=== PATIENT | female | born 1995 | race Caucasian/White ===

== ENCOUNTER 2021-10-04 14:51 | Emergency (ER) | payer OTHER, SELFPAY ==
[2021-10-04 15:05] VITALS: BP 116/74; PULSE 86; RESP 16; TEMP 37; O2SAT 100
--- NOTE | 2021-10-04 15:23 | ED.URI ---
HPI - URI/Sore Throat General Chief Complaint: Upper Respiratory Infection Stated Complaint: Sore Throat Time Seen by Provider: 10/04/21 15:24 Source: patient and RN notes reviewed Mode of arrival: ambulatory Limitations: no limitations History of Present Illness HPI Narrative: 26-year-old female presents to the [facility] with 2 days of upper respiratory concerns. Recently just got over strep. States she has had a cough that started on 02 October. Body aches that started today. Patient has a concern for bronchitis. Concerned she might need another antibiotic even though she just finished 1 for strep throat. Patient reports that she was positive COVID on day of delivery, 5 weeks ago. Currently breast-feeding. Related Data Allergies Allergy/AdvReac Type Severity Reaction Status Date / Time Penicillins Allergy Severe Swelling Verified 10/04/21 15:15 Review of Systems Review of Systems: All systems reviewed & are unremarkable except as noted in HPI and below Constitutional: Constitutional: Reports no additional constitutional complaints, Denies chills and Denies fever(s) Eyes: Eyes: Reports no additional eye complaints ENT: Reports system reviewed and no additional complaints, except as documented Cardiovascular: Cardiovascular: Reports no additional cardiovascular complaints Respiratory: Respiratory: Reports as per HPI, Denies chest congestion, Reports cough and Denies dyspnea Gastrointestinal: Gastrointestinal: Reports no additional gastrointestinal complaints Musculoskeletal: Musculoskeletal: Reports no additional musculoskeletal complaints Integumentary/Breasts: Skin/Breast: Reports system reviewed and no additional complaints, except as docu Neurologic: Reports system reviewed and no additional complaints, except as documented Psychiatric: Psychiatric: Reports no additional psychiatric complaints Allergic/Immunologic: Allergic/Immunologic: Reports no additional allergic/immunologic complaints [facility] Past Medical History Medical History (Updated 10/04/21 @ 18:39 by Trena Gan APRN) Patient denies medical problems Surgical History Surgical History (Updated 10/04/21 @ 18:39 by Trena Gan APRN) No pertinent past surgical history Social History Social History (Updated 10/04/21 @ 18:39 by Trena Gan APRN) Living arrangements: with family Gender identity (if verbalized by the patient): Female Comments At the time of my signature, I reviewed and agree with the nursing past medical, surgical, social, and family history. There is no relevant family history pertinent to the patient complaint. Exam Const: General: healthy appearing, no acute distress and alert Nutritional Appearance: well nourished and obese Orientation/consciousness: patient oriented x3 Limitations: no limitations HENMT: Head: normal to inspection Ears: external ears normal, TM's normal bilaterally and EAC's normal General nose exam: Normal external nose present and Normal nares present Mouth: Yes lip normal Throat: uvula midline, posterior oropharynx abnormal cobblestoning and postnasal drainage Eyes: General: appearance normal, both eyes and all related structures Pupils: Equal, round and reactive pupils present Neck: Neck: normal visual inspection, no lymphadenopathy and no meningeal signs Chest: Chest palpation & inspection: normal inspection of the chest Resp: Effort & Inspection: normal respiratory effort and no use of accessory muscles Auscultation: clear to auscultation bilaterally, no crackles, no rales, no rhonchi and no wheezes Cardio: Rate: regular rate Rhythm: regular rhythm Back/Spine/Pelvis: Cervical Spine: normal cervical lordosis Thoracic/Lumbar Spine: thoracic and lumbar spine normal to inspection Skin: General skin exam: normal color Rashes: no rashes Wounds: no wounds Neuro: General: patient oriented x3, moves all extremities, no meningeal signs and no focal motor deficits Cranial nerv
== END 2021-10-04 15:45 | disposition home or self-care (01) ==
PROVIDERS: Emergency Provider Nurse Practitioner; PCP Family Medicine
DX: R09.82 Postnasal drip (principal); J06.9 Acute upper respiratory infection, unspecified; Z86.16 Personal history of COVID-19
CPT/HCPCS: 99212; G0463

== ENCOUNTER 2022-12-11 15:17 | Emergency (ER) | payer OTHER, SELFPAY ==
--- NOTE | 2022-12-11 15:28 | ED.URI ---
HPI - URI/Sore Throat General Chief Complaint: Upper Respiratory Infection Stated Complaint: Sore Throat, Congestion, Shortness of Breath Time Seen by Provider: 12/11/22 15:29 Source: patient, family, RN notes reviewed and old records reviewed Mode of arrival: ambulatory Limitations: no limitations History of Present Illness HPI Narrative: 27 year female presents to [facility] accompanied by 2 children with 1 child to be seen for illness also. Mother states Monday she started having a sore throat, Monday it kind of went into to her chest, and today she feels a little light headed and warm. Patient is 16 weeks . Patient reports that she hasn't had a fever, chills or acute congestion. Patient reports that she has taken some Tylenol for her symptoms. MD elicited complaint: cough and sore throat Onset (ago): day(s) (3 days) Pain scale (0-10): 2 Able to tolerate fluids by mouth: Yes Treatments prior to arrival: acetaminophen Related Data Home Medications Medication Instructions Recorded Confirmed vit no.95-ferrous tablet PO 12/11/22 fumarate 28 mg-folic acid 800 mcg tablet () progesterone micronized 200 mg mg 12/11/22 capsule Allergies Allergy/AdvReac Type Severity Reaction Status Date / Time Penicillins Allergy Severe Swelling Verified 12/11/22 15:41 Review of Systems Review of Systems: CONSTITUTIONAL: Reports malaise,no chills, sweats, or fever. states has felt warm and kind of lightheaded is 16 weeks . EYES: Denies visual changes, redness, or discharge. ENT: Reports rhinorrhea, congestion,no sinus pain, otalgia and positive for sore throat. CARDIOVASCULAR: Denies chest pain, palpitations, or edema. RESPIRATORY: Reports cough.? Denies dyspnea. GASTROINTESTINAL: Denies abdominal pain, nausea, vomiting, diarrhea SKIN: Denies rash or itching. MUSCULOSKELETAL: Denies myalgia. NEUROLOGIC: Denies headache. All systems reviewed & are unremarkable except as noted in HPI and below PMFSH Past Medical History Medical History (Updated 12/11/22 @ 16:58 by Bernadette Gallegos NP) Anxiety Bronchitis Patient denies medical problems Surgical History Surgical History (Updated 12/11/22 @ 16:30 by Bernadette Gallegos NP) Hx of cholecystectomy Hx of dilation and curettage Social History Social History (Updated 10/04/21 @ 18:39 by Trena Gan APRN) Living arrangements: with family Gender identity (if verbalized by the patient): Female Comments At time of signature, agree with nursing past medical, surgical, social and family history. There is no relevant family history pertinent to the presenting complaint Exam Narrative: GENERAL: Well-appearing, well-nourished, and in no acute distress. HEAD: Normocephalic EYES: PERRLA, conjunctivae clear ENT: Nares clear, turbinates edematous and erythematous, clear discharge. Mucous membranes moist. TM pearly coronado with dull light reflex bilaterally; no tragal tenderness. Oropharynx erythematous without lesions. Tonsils not enlarged and without exudate, no drooling, no hoarseness, no trismus, uvula midline. NECK: Supple. No lymphadenopathy CHEST: Clear to auscultation, breath sounds equal. No wheezing, rhonchi, rales, or stridor. No respiratory distress, speaks in full sentences.SAO2 98% on room air. HEART: Regular rate and rhythm. No murmur heard. SKIN: Warm, dry, no rash. NEURO: Alert and oriented x3. PSYCH: Normal mood and affect Course Course Emergency Course: Patient is aware of diagnosis, understands and agrees to treatment plan.? Anticipatory guidance given.? Patient agrees to follow-up as directed and is aware of reasons to seek care at the emergency department. Portions of this record may have been created with voice recognition software Level of Care: Express Care Visit Vital Signs Vital signs: Vital Signs Temperature 36.9 C 12/11/22 15:42 Pulse Rate 70 12/11/22 1
[2022-12-11 15:42] VITALS: BP 118/74; PULSE 70; RESP 18; TEMP 36.9; O2SAT 98
== END 2022-12-11 17:02 | disposition home or self-care (01) ==
PROVIDERS: Emergency Provider Registered Nurse; PCP Family Medicine
DX: O99.512 Diseases of the respiratory system complicating pregnancy, second trimester (principal); Z3A.16 16 weeks gestation of pregnancy
CPT/HCPCS: 87081; 87426; 87804; 87880; 99213; C9803; G0463

== ENCOUNTER 2024-04-16 09:24 | Emergency (ER) | payer OTHER, SELFPAY ==
[2024-04-16 09:37] VITALS: BP 113/74; PULSE 68; RESP 16; TEMP 36.9; O2SAT 100
--- NOTE | 2024-04-16 09:53 | ED.URI ---
HPI - URI/Sore Throat General Chief Complaint: Upper Respiratory Infection Stated Complaint: sore throat,CA,bodyaches flu A exp Time Seen by Provider: 04/16/24 10:21 Source: patient and RN notes reviewed Mode of arrival: ambulatory Limitations: no limitations History of Present Illness HPI Narrative: 28-year-old female presents with concern for 2 day history of sore throat, right ear pain, nasal congestion postnasal drip, cough. She reports chest tightness when she coughs. Reports body aches and headaches. Reports exposure to flu. Reports she has taken no [id number] medications MD elicited complaint: cough and sore throat Related Data Home Medications ?Medication ?Instructions ?Recorded ?Confirmed ?Last Taken ?Type vit no.95-ferrous tablet PO 12/11/22 Unknown History fumarate 28 mg-folic acid 800 mcg tablet () progesterone micronized 200 mg mg 12/11/22 Unknown History capsule Allergies Allergy/AdvReac Type Severity Reaction Status Date / Time Penicillins Allergy Severe Swelling Verified 04/16/24 09:56 Review of Systems Review of Systems: CONSTITUTIONAL: Reports malaise EYES: Denies visual changes, redness, or discharge. ENT: Reports rhinorrhea, congestion, otalgia and sore throat. CARDIOVASCULAR: Denies chest pain, palpitations, or edema. RESPIRATORY: Reports cough. Denies dyspnea. GASTROINTESTINAL: Denies abdominal pain, nausea, vomiting, diarrhea SKIN: Denies rash or itching. MUSCULOSKELETAL: Reports myalgia. NEUROLOGIC: Reports headache. All systems reviewed & are unremarkable except as noted in HPI and below PMFSH Past Medical History Medical History (Updated 04/16/24 @ 10:28 by Trena Orozco NP) Bronchitis Anxiety Patient denies medical problems Surgical History Surgical History (Updated 12/11/22 @ 16:30 by Bernadette Gallegos NP) Hx of dilation and curettage Hx of cholecystectomy Social History Social History (Updated 10/04/21 @ 18:39 by Trena Gan APRN) Living arrangements: with family Gender identity (if verbalized by the patient): Female Comments At time of signature, agree with nursing past medical, surgical, social and family history. There is no relevant family history pertinent to the presenting complaint Exam Narrative: GENERAL: Nontoxic-appearing, well-nourished, and in no acute distress. HEAD: Normocephalic EYES: PERRLA, conjunctivae clear ENT: Nares clear. Mucous membranes moist. TM pearly coronado with dull light reflex bilaterally; no tragal tenderness. Oropharynx not erythematous without lesions. Tonsils not enlarged and without exudate, no drooling, no hoarseness, no trismus, uvula midline. NECK: Supple. No lymphadenopathy CHEST: Clear to auscultation, breath sounds equal. No wheezing, rhonchi, rales, or stridor. No respiratory distress, speaks in full sentences. HEART: Regular rate and rhythm. No murmur heard. SKIN: Warm, dry, no rash. NEURO: Alert and oriented x3. PSYCH: Normal mood and affect Course Course Emergency Course: Patient is aware of diagnosis, understands and agrees to treatment plan. Anticipatory guidance given. Patient agrees to follow-up as directed and is aware of reasons to seek care at the emergency department. Portions of this record may have been created with voice recognition software Level of Care: Express Care Visit Vital Signs Vital signs: Vital Signs Temperature 98.5 F 04/16/24 09:37 Pulse Rate 68 04/16/24 09:37 Respiratory Rate 16 04/16/24 09:37 Blood Pressure 113/74 04/16/24 09:37 Pulse Oximetry 100 04/16/24 09:37 Oxygen Delivery Room Air 04/16/24 09:37 Temperature 98.5 F 04/16/24 09:37 Pulse Rate 68 04/16/24 09:37 Respiratory Rate 16 04/16/24 09:37 Blood Pressure 113/74 04/16/24 09:37 Pulse Oximetry 100 04/16/24 09:37 Oxygen Delivery Room Air 04/16/24 09:37 Reviewed. MDM - URI/Sore Throat MDM Narrative Medical decision making narrative: Differential diagnosis considered: Pandya virus, strep pharyngitis, allergic rhinitis, upper respiratory tract infection, sinusitis, rhinosinusitis, nasopharyngitis. viral pharyngitis, otitis media, otitis externa, pneumonia, bronchitis, viral cough syndrome, viral syndrome, and influenza. Exam findings show no acute concerns or changes; patient is non-toxic appearing and is in no distress. Patient is appropriate for outpatient treatment and follow-up. Lab Data Attestation: I reviewed the patient's lab results. Critical Care Time Critical Care Time Critical Care Time: No Discharge Plan Discharge Clinical Impression: Influenza-like illness Patient Disposition: Home, Self-Care Condition: Stable Instructions: Viral Syndrome (ED) Additional Instructions: -Take strict precautions to prevent the spread of your virus. Be diligent about covering your cough (even when you are alone) and washing your hands frequently. -You may contagious until you have been symptom and/or fever free for 24 hours without fever reducing medicine -Alternate Ibuprofen and Tylenol for pain and fever relief (per package directions) -Some Cough medicines may make you drowsy, do not take it if you have to make important decisions, drive, or work. -Drink plenty of fluid - drink fluid with electrolytes such as Gatorade or other oral re-hydration solution. Avoid caffeine, which can make dehydration worse. -Get plenty of rest to help your body heal. -Use a cool mist humidifier for chest and nasal congestion. -Eat RAW honey or use cough drops to ease throat discomfort -Do not smoke or expose children to secondhand smoke -Wash your hands frequently. -Please follow-up with your primary care doctor in the next 1-2 days if your symptoms do not improve. -If you have any worsening of symptoms or any other concerns please go to the ED immediately. -Please take medications as prescribed and continue taking your home medications as usual. Patient Language: Belarusian Prescriptions: New promethazine-DM 6.25-15 mg/5 mL syrup 5 ml PO Q4-6H PRN (Reason: cough) Qty: 120 0RF methylprednisolone [Medrol (Michael)] 4 mg tablets,dose pack See Rx Instructions .ROUTE .COMPLEX Qty: 21 0RF Rx Instructions: orally per package directions No Action progesterone micronized 200 mg capsule PNV b#95-ferrous fumarate-FA [] 28 mg iron- 800 mcg tablet PO Follow-up/Referrals: Joel,Dominick Montano MD [Primary Care Provider] - Stand Alone Forms: Work/School Release IP Time of Disposition: 10:29
[2024-04-16 10:24] LABS: EDSTREPNEGPOS1 Negative (Negative)
[2024-04-16 10:30] LABS: EDCOVIDSCREEN Negative (Negative); EDINFLUASCREEN Negative (Negative); EDINFLUBSCREEN Negative (Negative)
== END 2024-04-16 10:35 | disposition home or self-care (01) ==
PROVIDERS: Emergency Provider Nurse Practitioner; PCP Family Medicine
DX: J02.9 Acute pharyngitis, unspecified (principal); R51.9 Headache, unspecified; H92.01 Otalgia, right ear; R05.9 Cough, unspecified; R09.81 Nasal congestion; Z20.822 Contact with and (suspected) exposure to COVID-19
CPT/HCPCS: 87081; 87426; 87804; 87880; 99213; G0463

== ENCOUNTER 2024-07-21 12:58 | Emergency (ER) | payer OTHER, SELFPAY ==
--- NOTE | ~2024-07-21 | US_ITS ---
US pelvic complete w TV Ordering provider: Steven Robert MD History: . Lower abdominal pain, concern for ovarian torsion . Comparison: None. Technique: Transabdominal and endovaginal ultrasound of the pelvis (Doppler ultrasound interrogation techniques used as needed for this exam.) FINDINGS: CERVIX: Normal. Calcifications are noted. UTERUS: Measures 9.2x 4.2x 6.2 cm in length which is within normal limits and is anteverted. No myom etrial masses. Peripheral veins are slightly prominent. ENDOMETRIUM: Normal in thickness measuring 3.3 mm. No endometrial masses, cysts or fluid. CUL DE SAC: Minimal free fluid seen adjacent to the right ovary. RIGHT OVARY: Normal in size measuring 4x 5x 5.6 centimeters. Normal echotexture. Doppler vascular josr w present. Multiple cystic structures with the largest measures 4.7 x 3.4 x 2.8 cm. LEFT OVARY: Normal in size measuring 2.8x 2.5x 3.2 cm. Normal echotexture. Doppler vascular flow pres ent. ADNEXA: Normal. No mass. IMPRESSION: Slightly enlarged right ovary with ovarian cysts. No definite torsion seen. Clinical correlation and follow-up advised. Possibility of pelvic congestion syndrome cannot be excluded. Otherwise, normal pe lvic ultrasound. Reviewed, dictated and finalized at location A. IMPRESSION: Slightly enlarged right ovary with ovarian cysts. No definite torsion seen. Cli nical correlation and follow-up advised. Possibility of pelvic congestion syndr ome cannot be excluded. Otherwise, normal pelvic ultrasound.
[2024-07-21 12:59] VITALS: BP 117/80; PULSE 75; RESP 16; TEMP 36.8; O2SAT 96
[2024-07-21 13:14] LABS: Basophils Absolute Auto 0.1 K/mm3 (0.0-0.1); Basophils Percent Auto 0.4 % (0.2-1.2); Eosinophils Absolute Auto 0.1 K/mm3 (0-0.3); Eosinophils Percent Auto 0.5 % (0-4.4); Hematocrit 38.9 % (37.0-47.0); Hemoglobin 13.1 g/dL (12.0-15.0); Immature Granulocyte Absolute 0.03 K/mm3 (0.00-0.031); Immature Granulocyte Percent A 0.3 % (0-0.5); Lymphocytes Absolute Auto 1.95 K/mm3 (0.9-3.2); Lymphocytes Percent Auto 16.3 % (18.3-44.2); Mean Corpuscular HGB Conc 33.7 g/dl (32-36); Mean Corpuscular Hemoglobin 27.2 pg (26-34); Mean Corpuscular Volume 80.9 fl (80-100); Mean Platelet Volume 10.3 fl (7.4-10.4); Monocytes Absolute Auto 0.7 K/mm3 (0.1-0.6); Neutrophils Absolute Auto 9.2 K/mm3 (1.3-6.7); Neutrophils Percent Auto 76.5 % (45.5-73.1); Platelet Count Result 262 k/mm3 (150-375); Red Blood Count 4.81 M/mm3 (4.2-5.4); Red Cell Distribution Width 12.6 % (11.5-14.5)
[2024-07-21 13:17] LABS: BEDSIDEPREGUCG Negative (Negative)
--- NOTE | 2024-07-21 13:18 | ED_ITS ---
HPI - General Adult General Chief complaint: Abdominal Pain Stated complaint: Abd Pain Time Seen by Provider: 07/21/24 13:07 History of Present Illness HPI narrative: 29-year-old female presenting to the emergency department for evaluation for left lower abdominal pain. Patient reports that her symptoms are probably while she sat time for her. Patient states she did have some pain with urination this morning and was having some vaginal spotting. Patient is on control but does not suspect that she is . Patient does have a prior history of ovarian cysts. When the pain started she did present to Urgent Care and due to the severity of her pain EMS was called and patient was transported to the emergency department by EMS. Patient was treated with IV fentanyl in route. At time initial evaluation patient states this pain medication is wearing off and does appear uncomfortable. Related Data Home Medications ?Medication ?Instructions ?Recorded ?Confirmed ?Last Taken ?Type vit no.95-ferrous tablet PO 12/11/22 Unknown History fumarate 28 mg-folic acid 800 mcg tablet () progesterone micronized 200 mg mg 12/11/22 Unknown History capsule Allergies Allergy/AdvReac Type Severity Reaction Status Date / Time Penicillins Allergy Severe Swelling Verified 07/21/24 13:03 Review of Systems 2 Review of Systems: All systems reviewed & are unremarkable except as noted in HPI and below PMFSH Past Medical History Medical History (Updated 07/21/24 @ 15:39 by Steven Robert MD) Bronchitis Anxiety Patient denies medical problems Surgical History Surgical History (Updated 12/11/22 @ 16:30 by Bernadette Gallegos NP) Hx of dilation and curettage Hx of cholecystectomy Social History Social History (Updated 10/04/21 @ 18:39 by Trena Gan APRN) Living arrangements: with family Gender identity (if verbalized by the patient): Female Exam 2 Narrative: APPEARANCE: Uncomfortable appearing HEAD: normocephalic, atraumatic. EYES: PERRLA/EOMI, conjunctivae clear. NOSE: Normal no drainage EARS:TMS clear with good light reflex. THROAT: Pharynx clear, no exudate. NECK: Supple. No adenopathy, no masses. RESPIRATORY: Airway patent, respirations nonlabored. Clear to auscultation bilaterally, no rales, rhonchi, wheezing. CARDIOVASCULAR: Regular rate and rhythm without murmurs rubs or gallops. ABDOMINAL: Left lower quadrant tenderness to palpation, suprapubic tenderness to palpation MUSCULOSKELETAL: Moves all extremities. Strength/ROM intact, No edema, No calf tenderness. NEURO: Alert. Cranial nerves II through XII intact. Grossly intact SKIN: Warm, dry. Normal Color Course Vital Signs Vital signs: Vital Signs Temperature 98.2 F 07/21/24 12:59 Pulse Rate 75 07/21/24 12:59 Respiratory Rate 16 07/21/24 12:59 Blood Pressure 117/80 07/21/24 12:59 Pulse Oximetry 96 07/21/24 12:59 Temperature 98.2 F 07/21/24 12:59 Pulse Rate 75 07/21/24 12:59 Respiratory Rate 16 07/21/24 12:59 Blood Pressure 117/80 07/21/24 12:59 Pulse Oximetry 96 07/21/24 12:59 Medical Decision Making MDM Narrative Medical decision making narrative: 29-year-old female presents emergency department for evaluation for urinary symptoms including dysuria and suprapubic abdominal pain. Patient is currently afebrile but does have a leukocytosis of 12.0 and hemoglobin of 13.1. No significant abnormalities on the patient's CMP. UA was significant for urinary tract infection was leukocyte esterase positive did have high red blood cells high white blood cells. Patient's urine was negative. Ultrasound did show evidence of a right-sided ovarian cyst. Patient's pain is suprapubic and to the left. Patient will be treated with Levaquin due to her underlying medication allergies. Patient will be provided Pyridium for additional symptom control. Patient was comfortable with plan for discharge and close follow-up. Differential Diagnosis Differential Diagnosis: Torsion, ovarian cyst, appendicitis, urinary tract infection, kidney stone Vital Signs Vital Signs: Vital Signs Temperature 98.2 F 07/21/24 12:59 Pulse Rate 75 07/21/24 12:59 Respiratory Rate 16 07/21/24 12:59 Blood Pressure 117/80 07/21/24 12:59 Pulse Oximetry 96 07/21/24 12:59 Temperature 98.2 F 07/21/24 12:59 Pulse Rate 75 07/21/24 12:59 Respiratory Rate 16 07/21/24 12:59 Blood Pressure 117/80 07/21/24 12:59 Pulse Oximetry 96 07/21/24 12:59 Lab Data Lab results reviewed: Yes I reviewed the patient's lab results. 07/21/24 13:07 07/21/24 13:07 Labs: Lab Results 07/21/24 07/21/24 07/21/24 Range/Units 13:07 13:13 13:14 WBC 12.0 H (4.5-10.0) K/mm3 RBC 4.81 (4.2-5.4) M/mm3 Hgb 13.1 (12.0-15.0) g/dL Hct 38.9 (37.0-47.0) % MCV 80.9 (80-100) fl MCH 27.2 (26-34) pg MCHC 33.7 (32-36) g/dl RDW 12.6 (11.5-14.5) % Plt Count 262 (150-375) k/mm3 MPV 10.3 (7.4-10.4) fl Immature Gran % (Auto) 0.3 (0-0.5) % Neut % (Auto) 76.5 H (45.5-73.1) % Lymph % (Auto) 16.3 L (18.3-44.2) % [place] % (Auto) 6.0 (2.6-8.5) % Eos % (Auto) 0.5 (0-4.4) % Baso % (Auto) 0.4 (0.2-1.2) % Lymph # (Auto) 1.95 (0.9-3.2) K/mm3 Newton # (Auto) 0.7 H (0.1-0.6) K/mm3 Eos # (Auto) 0.1 (0-0.3) K/mm3 Baso # (Auto) 0.1 (0.0-0.1) K/mm3 Abs Immat Gran (auto) 0.03 (0.00-0.031) K/mm3 Absolute Neuts (auto) 9.2 H (1.3-6.7) K/mm3 Absolute Nucleated RBC 0.000 (0.0-0.012) K/mm3 Nucleated RBC % 0.0 (0.0-0.2) % Sodium 140 (137-145) mmol/L Potassium 3.8 (3.4-5.0) mmol/L Chloride 108 H (98-107) mmol/L Carbon Dioxide 23 (22-30) mmol/L Anion Gap 9 (4-12) mmol/L BUN 10 (7-17) mg/dL Creatinine 0.57 L (0.7-1.0) mg/dL Estim Creat Clear Calc 139 ml/min Estimated GFR > 60 (59 - ) Glucose 99 (65-110) mg/dL Calcium 9.2 (8.4-10.2) mg/dL Total Bilirubin 0.4 (0.2-1.3) mg/dL AST 53 H (14-36) U/L ALT 86 H (6-35) U/L Alkaline Phosphatase 49 (38-126) U/L Total Protein 7.0 (6.3-8.2) g/dL Albumin 4.0 (3.5-5.1) g/dL Lipase 58 (23-300) U/L Urine Color Dark yellow (Yellow) Urine Appearance Cloudy H (Clear) Urine pH 6.0 (5.0-9.0) Ur Specific [place] 1.026 (1.001-1.035) Urine Protein 2+ H (Negative) mg/dL Urine Glucose (UA) Negative (Negative) mg/dL Urine Ketones Trace H (Negative) mg/dL Ur Blood (Man) 3+ H (Negative) Urine Nitrate Negative (Negative) Urine Bilirubin Negative (Negative) Urine Urobilinogen 1.0 (<2.0) mg/dL Add Ur Microanalysis Reviewed Leukocyte Esterase Rfl 2+ H (Negative) HODA/UL Urine RBC >100 H (0-2) /hpf Urine WBC >100 H (0-3) /hpf Ur Squamous Epith Cells None seen (Few) /hpf Urine Bacteria None seen /hpf Urine Casts 0-2 POC Urine HCG, Qual Negative (Negative) Imaging Data Radiologist's impression: Impressions Pelvic/Transvag US 07/21/24 14:10 IMPRESSION: Slightly enlarged right ovary with ovarian cysts. No definite torsion seen. Clinical correlation and follow-up advised. Possibility of pelvic congestion syndrome cannot be excluded. Otherwise, normal pelvic ultrasound. Discharge Plan Discharge Clinical Impression: Urinary tract infection Patient Disposition: Home Condition: Stable Instructions: Antibiotic Form, Urinary Tract Infection in Women (DC) Additional Instructions: Ibuprofen for pain control. Pyridium as needed for urinary symptoms. Antibiotic as directed until completed. [place] as needed for additional pain control. Have close follow-up with your primary care physician. Patient Language: Mohawk Prescriptions: New levofloxacin 750 mg tablet 750 mg PO DAILY 7 Days Qty: 7 0RF phenazopyridine [Pyridium] 200 mg tablet 200 mg PO TID Qty: 6 0RF hydrocodone-acetaminophen 5-325 mg tablet 1 tablet PO Q12H PRN (Reason: pain) Qty: 14 0RF No Action progesterone micronized 200 mg capsule PNV cmb#95-ferrous fumarate-FA [] 28 mg iron- 800 mcg tablet PO promethazine-DM 6.25-15 mg/5 mL syrup 5 ml PO Q4-6H PRN (Reason: cough) Qty: 120 0RF methylprednisolone [Medrol (Michael)] 4 mg tablets,dose pack See Rx Instructions .ROUTE .COMPLEX Qty: 21 0RF Rx Instructions: orally per package directions Follow-up/Referrals: Joel,Dominick Montano MD [Primary Care Provider] -
[2024-07-21] MEDS: HYDROmorphone HCL INJ (*CRX) 2 MG/ML VIAL 1 MG IV PUSH (13:21)
[2024-07-21] MEDS: ONDANSETRON INJ 4 MG/2 ML VIAL IV PUSH (13:21)
--- OUTSIDE RECORDS SUMMARY | 2024-07-21 13:22 | XMS_ITS | Clinical Summary ---
Author Organization [facility] Address [address] [place] [address] Care Team Providers Care Roping Tender Name Role Phone Dominick Maldonado MD Primary Care Provider Allergies Active Allergy Reactions Criticality Noted Date Comments Penicillins Swelling,Blisters High 04/12/2019 Medications sertraline (ZOLOFT) 50 mg tablet Take 1 tablet (50 mg total) by mouth daily 30 tablet 5 4 Active hydrOXYzine (ATARAX) 25 mg tablet Take 1 tablet (25 mg total) by mouth every 6 (six) hours as needed for anxiety 30 tablet 1 4 Active Additional Information Patient not taking.Reported on 07/21/2024 Hospital, Clinic, or Other Facility Administered Medication Ordered Dose Route Frequency Start Date End Date Status etonogestreL (NEXPLANON) implant 68 mgIndications:Pregna ncy Contraception 68 mg subderm Continuous (implanted device) 07/04/2023 07/03/2026 Active Active Problems Problem Noted Date Diagnosed Date Annual physical exam 07/04/2023 Sterilization 05/15/2023 care following vaginal delivery Overview (05/12/2023): 05/11/2023 PPD #1 (CZ) 27 yo s/p of viable female . VSS, afebrile B+, Rubella Immune Hgb 11.5 QBL 200 Mom and baby doing well Normal exam Ambulating, voiding and tolerating PO, lochia WNL MOF: Formula MOC: Tubal - will need at 6 weeks will have scheduled VTE: Frequent ambualtion Dispo: Continue routine care 05/12/23, PPD2 (JF) S/p uncomplicated EBL 200 cc, Hgb 11.9 > 11.5 B+, Rubella immune Vital signs reviewed and notable for MR BP but does not meet criteria for hypertensive disorder Ambulating, tolerating PO, voiding spontaneously, lochia moderate, pain controlled MOF: Formula feeding MOC: desire tubal ligation - will have scheduled in 4-6 wks VTE ppx: The patient has the following MAJOR risk factors none and the following MINOR risk factors BMI 30-39. SCDs ordered for VTE prophylaxis. Mood: stable Dispo: Desires discharge home today. teaching provided. Follow up in 6 wks Supervision of other normal , antepartu m 10/31/2022 Encounter for visit 08/29/2021 Assessment & Plan (10/04/2021 2:15 PM CDT): Doing well physically and emotionally. 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 Her is complicated by obesity, HSV (BLE Negative), hx of LGSIL and hx of PPROM. VSS, afebrile B+, Rubella Immune Reactive tracing SVE: 5.5/100/-1 BBOW GBS negtative Plan AROM when patient comfortable with epidural Consider OT if labor stalls. Anticipate Encounter for elective induction of labor 05/10/2023 09/25/2023 UTI (urinary tract infection) 01/19/2023 09/25/2023 Overview (01/19/2023): Treatment sent 01/19 Mass of lower inner quadrant of right breast 3 09/25/2023 Herpes simplex infection of perianal skin 08/12/2022 09/25/2023 Missed 01/26/2022 09/25/2023 Overview (01/26/2022): Added automatically from request for surgery [id number] Normal labor and delivery 08/28/2021 Overview (08/29/2021): 08/28/2021, 1100 (SK): 26-year-old at 37 weeks and 4 days today presented last night with spontaneous rupture of membranes and active labor. She had an uncomplicated, unmedicated labor with a category 1 heart tracing. When the patient reached complete dilation, I was called to attend delivery. Upon my arrival, the patient began pushing and had an uncomplicated vaginal delivery it over the next 3 contractions. See delivery record for details. Excessive growth affec ting management of in third trimester 08/02/2021 10/05/19 Supervision of other normal , antepartum 03/30/2021 08/29/2021 Overview (08/29/2021): Jaconita transfer EDC by 6 week ultrasound B+/I/-/-, HIV NR Early glucose: 92 Panorama: low risk GCT:100 TDAP: 06/21/2021 GBS: negative H/O PPROM and delivery at 30w5d. Prometrium HS LGA- 4/27 (30w1d) 93%, AC 95%-repeat in 4wks. (08/02) 94%, AC > 97% History of delivery, currently 03/30/2021 10/04/2021 Gallbladder colic 04/16/2019 03/30/2021 Placenta previa antepartum 04/16/2019 0 03/30/2021 Recurrent streptococcal tonsillitis 04/16/2019 03/30/2021 Encounters Date Type Department Care Team Description 07/21/2024 12:15 PM CDT Office Visit [facility] at [address] [address] Sharron Rodriguez NP Abdominal pain (Primary Dx) from Last 3 Months Immunizations Immunization Administration Dates Next Due Influenza, Quadrivalent, Spl it, Preservative Free, Intramuscular 12/26/2022,04/14/2019 Influenza, Unspecified 03/13/2021(Deferred: Susana ent Refused) MMR 04/18/2019 Tdap 03/09/2023,06/21/2021,04/14/2019 Surgical History Surgery Date Site/Laterality Comments DILATION AND CURETTAGE OF UTERUS 03/13/2014 - 03/12/2015 miscarriage CHOLECYSTECTOMY 03/13/2016 - 03/12/2017 VAGINAL DELIVERY 2019 and 2021 Medical History Medical History Date Comments Abnormal Pap smear of cervix Excessive growth affec ting management of in third trimester 08/02/2021 Miscarriage 2015 Family History Medical History Relation Name Comments Diabetes Maternal Grandfather Heart disease Maternal Grandfather Hyperlipidemia Maternal Grandfather Hypertension Maternal Grandfather Hypertension Maternal Grandmother Hypertension Mother Breast cancer Mother's Sister Depression Neg Hx Ovarian cancer Neg Hx Uterine cancer Neg Hx Relation Name Status Comments Maternal Grandfather Maternal Grandmother Mother Alive Mother's Sister Social History Tobacco Use Types Packs/Day Years Used Date Smoking Tobacco: Former Cigarettes Q uit: 2019 Passive Smoke Exposure: Never Smokeless Tobacco: Current Tobacco Cessation:Ready to Q uit: Not Asked; Counseling Given: Not Answered AUDIT-C Answer Date Recorded Q1: How often do you have a drink containing alc ohol? Never 09/25/2023 Average Number of Drinks Not on file 024 Frequency of Binge Drinking Not on file 09/10 PHQ-2 Answer Date Recorded PHQ-2 Total Score (If total score is 3 or more points, staff should administer the PHQ-9) 0 09/25/2023 [place] Depression Scale Answer Date Recorded [place] Depression Scale Total 11 06/27/2023 The thought of harming myself has occurred to me . Never 06/27/2023 Personal Safety Answer Date Recorded Have you ever been in or are you currently in a harmful physical or emotional relationship or is someone making you feel afraid or unsafe? Denies 06/14/2023 Comments Unknown Sex and Gender Information Value Date Recorded Sex Assigned at Not on file Legal Sex Female 9:55 AM CLASSIFICATION INSPECTOR Gender Identity Female 11/03/2023 3:51 PM CDT Sexual Orientation Straight 11/03/2023 3: 51 PM CDT Obstetrics History Para Term AB IAB SAB Ectopic Multiple Livin g Live Births 5 3 2 1 2 2 0 3 3 Date Outcome GA Total Labor Labor/2nd/3rd Weight Sex Type Anes PTL Alexandra A1 A5 Name Clin 2014 SAB D&C 2019 30w 3d 1.928 kg (4 lb 4 oz) F Vag-Sp ont Epidur al N Livin g Complications:Abruptio Place nta Delivery Location:[facility] 2021 Term 37w 4d 0h 23m 0h 20m/0h 03m 3.63 kg (8 lb) F Vag-Sp ont Epidur al N Livin g 9 9 DEVON ROLLINS, Chirag Marsh MD Complications:None Delivery Location:[facility] Main C ampus ([facility]) SAB 2023 Term 38w 0d 3h 15m 3h 01m/0h 09m/0h 05m 3.68 kg (8 lb 1.8 oz) F Vagina l Epidur al N Livin g 8 9 Pallavi coffman, Brayden Sagastume CNM Complications:None Delivery Location:E Main C ampus ([facility]) Last Filed Vital Signs Vital Sign Reading Time Taken Comments Blood Pressure 130/82 07/21/2024 12:07 PM CDT Pulse 100 07/21/2024 12:07 PM CDT Temperature 37.5 C (99.5 F) 07/21/2024 12:07 PM CDT Respiratory Rate 24 07/21/2024 12:07 PM CDT Oxygen Saturation 99% 07/21/2024 12:07 PM CDT Inhaled Oxygen Concentration - - Weight 89.6 kg (197 lb 9.6 oz) 09/25/2023 10:35 AM CDT Height 165.1 cm (5' 5 ) 09/25/2023 10:35 AM CDT Body Mass Index 32.88 09/25/2023 10:35 AM CDT Plan of Treatment Health Maintenance Due Date Last Done Comments Varicella Vaccines (1 of 2 - 13+ 2-dose series) 06/01/2007 Hepatitis B Screening 2012 Cervical Cancer Screening 09/07/20232022, 03/30/2021 Depression Screening 09/24/2024 09/25/2023, 06/27/2023 Regular Well Visit/Exam 18-64 09/24/2024 09/25/2023 Influenza Vaccine (Season Ended) 2024 12/26/2022, 04/14/2019 DTaP/Tdap/Td Vaccine (4 - Td or Tdap) 03/09/2033 03/09/2023, 06/21/2021, 04/14/2019 Hepatitis C Screening Completed 11/03/2022 , 01/05/2022 HPV Vaccines Aged Out No longer eligi ble based on patient's age to complete this topic Pneumococcal vaccine <65 Aged Out No longer eligible based on patient's age to complete this topic Procedures Procedure Name Priority Date/Time Associated Diagnosis Comments HEPATITIS C ANTIBODY Routine 11/03/2022 1:39 PM CDT Encounter for supervision of other normal in first trimester PAP WITH REFLEX TO HIGH RISK HPV Routine 09/06/2022 10:16 AM CDT Screening for cervical cancer from Last 3 Months or Most Recently Relevant to Health Maintenance Results * Hepatitis C antibody (11/03/2022 1:39 PM CDT) Hep C Ab Nonreactive Nonreactive KEISHA RODRIGUEZ Comment: Interpretive Data Nonreactive: Antibodies to HCV not detected. Does NOT exclude the possibility of recent exposure to HCV. Equivocal: Equivocal for HCV antibodies. Supplemental molecular testing will be automatically performed to determine infection status in accordance with current CDC screening recommendations. Reactive: Positive for HCV antibodies. This may represent current or past HCV infection. Supplemental molecular testing will be automatically performed to determine current infection status in accordance with current CDC screening recommendations. Interpretive data was last revised on 2019. Blood 11/03/2022 1:39 PM CDT 11/03/2022 9:19 PM CDT us Imelda Woody MD LAB MICROBIOLOGY - GENERA L ORDERABLES Final Result KEISHA [address] [facility] Department [place] [address] * Pap with reflex to High Risk HPV (09/06/2022 10:16 AM CDT) Thin prep (Pap test) 09/06/2022 10:16 AM CDT 09/08/2022 10:16 AM CDT Narrative PATHOLOGY [facility] - 09/15/2022 12:31 PM CDT [facility] Department of Pathology [address] [place] [id number] Final Report Note to Patients: This report may contain a detailed description of human tissue sent by a health care provider to the laboratory for pathologic evaluation. The content of this report is essential for diagnosis and may provide important critical findings. This information may be unfamiliar to patients to review without a medical professional present. It is advised that the patient review this report in the presence of a health care provider who can answer questions and explain the details. Patient Name: J CARLOS ROLLINS Address: [address] [place] [id number]- Gender: F : 1995 (Age: 27) Service: Location: Hospital #: [id number] Patient Type: [facility] SPECIMEN Taken: 09/06/2022 Received: 09/08/2022 Accessioned:: 09/09/2022 Reported: 09/15/2022 Physician(s): Guille Hernandez M.D. [facility] Diagnosis: SOURCE OF SPECIMEN Imaged Thinprep Pap Test w/ Reflex HPV - Fabrication Welder Cytologic Material: STATEMENT OF ADEQUACY - Satisfactory for evaluation; endocervical/transformation zone component present GENERAL CATEGORIZATION: - Negative for intraepithelial lesion or malignancy AV Lord(ASCP)AV Hamilton(ASCP) Report Electronically Reviewed and Signed Out By AV Hamilton(ASCP) 09/15/2022 12:31:42Specimen(s) Received: A: Imaged Thinprep Pap Test w/ Reflex HPV - Fabrication Welder Cytologic Material Clinical History: Last Menstrual Period: 08/18/2022 Menstrual History: Routine Checkup The Pap test is a screening test used to aid in the detection of cervical cancer and its precursors. It should not be the sole means by which malignant and premalignant lesions are diagnosed. Both false negative and false positive results may occur. It also has poor sensitivity for the detection of endometrial lesions and should not be used to evaluate suspected endometrial abnormalities. For these reasons it is most important to obtain Pap tests at regular intervals. The performance characteristics of some immunohistochemical stains, fluorescence in-situ hybridization tests and immunophenotyping by flow cytometry cited in this report (if any) were determined by the Surgical Pathology Department at [facility] as part of an ongoing senior supplier quality engineer program and in compliance with federally mandated regulations drawn from the Clinical Laboratory Improvement Act of 1988 (CLIA '88). Some of these tests rely on the use of analyte specific reagents and are subject to specific labeling requirements by the US Food and Drug Administration. Such diagnostic tests may only be performed in a facility that is certified by the Department of Health and Human Services as a high complexity laboratory under CLIA '88. The FDA has determined that such clearance or approval is not necessary. This test is used for clinical purposes. It should not be regarded as investigational or for research. Nevertheless, federal rules concerning the medical use of analyte specific reagents require that the following disclaimer be attached to the report: This test was developed and its performance characteristics determined by the Surgical Pathology Department [facility]. It has not been cleared or approved by the U. S. Food and Drug Administration. Guille Hernandez MD LAB CYTOLOGY ORDERABLES Final Result [facility] from Last 3 Months or Most Recently Relevant to Health [place] [address] [facility] [address], [address] Advance Directives For more information, please contact: [phone] * Full Code (Latest Code Status on File) Date Activated Date Inactivated Comments 05/10/2023 5:46 PM 05/12/2023 5:34 PM * Full Code Date Activated Date Inactivated Comments 05/10/2023 4:15 PM 05/10/2023 5:46 PM Full CPR in case of cardiopulmonary arrest * Full Code Date Activated Date Inactivated Comments 08/28/2021 10:47 AM 08/29/2021 10:06 PM * Full Code Date Activated Date Inactivated Comments 08/28/2021 6:08 AM 08/28/2021 10:47 AM Full CPR in case of cardiopulmonary arrest * Full Code Date Activated Date Inactivated Comments 04/12/2019 5:25 PM 04/16/2019 3:28 PM Full CPR in c ase of cardiopulmonary arrest Care Teams Roping Tender Relationship Specialty Start Date End Date Dominick Maldonado MD PCP - General Family Medicine 04/06/20
--- OUTSIDE RECORDS SUMMARY | 2024-07-21 13:22 | XMS_ITS | Encounter Summary ---
Author Organization [facility] Facility Care Team Providers Care Lobby Concierge Name Role Phone Dominick Maldonado MD Primary Care Provider [phone] Jessee Corbett MD Primary Care Provider [phone] Dominick Maldonado MD Primary Care Provider [phone] Encounter Details Date Type Department Care Team (Latest Contact Info) Description 03/21/2016 Orders Only [facility] CLINCONV ProviderKirstie MD [address] [place] [id number] Social History Tobacco Use Types Packs/Day Years Used Date Smoking Tobacco: Never Assessed Comments Unknown Sex and Gender Information Value Date Recorded Sex Assigned at Not on file Legal Sex Female 9:55 AM CHILD DEVELOPMENT TEACHER Gender Identity Female 11/03/2023 3:51 PM CDT Sexual Orientation Straight 11/03/2023 3: 51 PM CDT documented as of this encounter Plan of Treatment Not on file documented as of this encounter Procedures Procedure Name Priority Date/Time Associated Diagnosis Comments SCAN - PATHOLOGY 03/21/2016 12:0 0 AM CHILD DEVELOPMENT TEACHER documented in this encounter Results * SCAN - PATHOLOGY (03/21/2016 12:00 AM CHILD DEVELOPMENT TEACHER) Narrative 03/21/2016 12:00 AM CHILD DEVELOPMENT TEACHER Ordered by an unspecified provider. Historical Provider Final Res ult documented in this encounter Visit Diagnoses Not on filedocumented in this encounter Additional Health Concerns Infection Onset Date Last Indicated Resolved Time COVID19 08/28/2021 08/28/2021 09/08/2021 3:05 AM CDT COVID: Recovered Comment:Added based on recent COVID infection. 09/08/2021 09/14/2021 01/06/2022 3:05 AM C DT documented as of this encounter Care Teams Lobby Concierge Relationship Specialty Start Date End Date Dominick Maldonado MD PCP - General 01/07/19 03/01/19 Jessee Corbett MD [address] [place] [address] PCP - General 03/02/19 04/05/20 Dominick Maldonado MD [address] [address] [place] [address] PCP - General Family Medicine 04/06/20 documented as of this encounter
--- OUTSIDE RECORDS SUMMARY | 2024-07-21 13:22 | XMS_ITS | Referral Summary ---
Author Organization [facility] Address [address] [place] [address] Care Team Providers Care Phone Representative Name Role Phone Dominick Maldonado MD Primary Care Provider [phone] Encounters Date Type Department Care Team Description 07/21/2024 12:15 PM CDT Office Visit [facility] at [address] [id number] Sharron Rodriguez, ANTONIO Abdominal pain (Primary Dx) from Last 3 Months Allergies Active Allergy Reactions Criticality Noted Date [...] of lower inner quadrant of right breast 09/25/2023 Herpes simplex infection of perianal skin 08/12/2022 09/25/2023 Missed 01/26/2022 09/25/2023 Overview (01/26/2022): Added automatically from request for surgery [id number] Normal labor and delivery 08/28/2021 Overview (08/29/2021): [...] normal , antepartum 03/30/2021 08/29/2021 Overview (08/29/2021): Concepcion transfer EDC by 6 week ultrasound B+/I/-/-, HIV NR Early glucose: 92 Panorama: low risk GCT:100 TDAP: 06/21/2021 GBS: negative H/O PPROM and delivery at 30w5d. Prometrium HS LGA- 07/07 (30w1d) 93%, AC 95%-repeat in 4wks. (08/02) 94%, AC > 97% History of delivery, currently 03/30/2021 10/04/2021 Gallbladder colic 04/16/2019 03/30/2021 Placenta previa antepartum 04/16/2019 0 03/30/2021 Recurrent streptococcal tonsillitis 04/16/2019 03/30/2021 Immunizations Immunization Administration Dates Next Due Influenza, Quadrivalent, Spl it, Preservative Free, Intramuscular 12/26/2022,04/14/2019 Influenza, Unspecified 03/13/2021(Deferred: Susana ent Refused) MMR 04/18/2019 Tdap 03/09/2023,06/21/2021,04/14/2019 Social History Tobacco Use Types Packs/Day Years [...] staff should administer the PHQ-9) 0 09/25/2023 [place] Depression Scale Answer Date Recorded [place] Depression Scale Total 11 06/27/2023 The thought [...] on file 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 Gender Identity Female 11/03/2023 3:51 PM CDT Sexual Orientation Straight 11/03/2023 3: 51 PM CDT Last Filed Vital Signs Vital Sign Reading [...] 09/25/2023 10:35 AM CDT Plan of Treatment Not on file Procedures Procedure Name Priority Date/Time Associated Diagnosis [...] 1:39 PM CDT 11/03/2022 9:19 PM CDT Imelda Woody MD LAB MICROBIOLOGY - GENERA L ORDERABLES Final Result KEISHA [address] [facility] Department [place] [address] * Pap with reflex to High Risk HPV (09/06/2022 10:16 AM CDT) Thin prep (Pap test) 09/06/2022 10:16 AM CDT 09/08/2022 10:16 AM CDT Narrative PATHOLOGY [facility] - 09/15/2022 12:31 PM CDT [facility] Department of Pathology [address] [place], [place] [id number] Final Report Note to Patients: This report [...] questions and explain the details. Patient Name: ALEIDA ROLLINS Address: [address] [place] [address], [place] [id number]- Gender: F : 1995 (Age: 27) Service: Location: N : [id number] [facility] #: [id number] Patient Type: [facility] SPECIMEN Taken: 09/06/2022 Received: 09/08/2022 Accessioned:: 09/09/2022 Reported: 09/15/2022 Physician(s): Guille Hernandez M.D. [facility] Diagnosis: SOURCE OF SPECIMEN Imaged Thinprep Pap Test w/ Reflex HPV - Studio Musician Cytologic Material: STATEMENT OF ADEQUACY - Satisfactory for evaluation; endocervical/transformation zone component present GENERAL CATEGORIZATION: - Negative for intraepithelial lesion or malignancy AV Lord(ASCP)AV Hamilton(ASCP) Report Electronically Reviewed and Signed Out By AV Hamilton(ASCP) 09/15/2022 12:31:42Specimen(s) Received: A: Imaged Thinprep Pap Test w/ Reflex HPV - Studio Musician Cytologic Material Clinical History: Last Menstrual Period: [...] determined by the Surgical Pathology Department at [facility] as part of an ongoing quality project manager program and in compliance with federally mandated [...] characteristics determined by the Surgical Pathology Department [facility]. It has not been cleared or approved by the U. S. Food and Drug Administration. Guille Hernandez MD LAB CYTOLOGY ORDERABLES Final Result [facility] from Last 3 Months or Most Recently Relevant to Health Maintenance Insurance [facility] Advance Directives For more information, please contact: [phone] * Full Code (Latest Code Status on [...] c ase of cardiopulmonary arrest Care Teams Phone Representative Relationship Specialty Start Date End Date Dominick Maldonado MD PCP - General Family Medicine 04/06/20
--- OUTSIDE RECORDS SUMMARY | 2024-07-21 13:22 | XMS_ITS | Encounter Summary ---
Author Organization [facility] Address [address] [place] [address] Care Team Providers Care Product Blending Supervisor Name Role Phone Dominick Maldonado MD Primary Care Provider [phone] Reason for Visit * Reason Comments Abdominal Pain Lower abdominal pain /pelvic pain started an hour ago. C/o pain when sitting and pain with lifting legs. C/o feels like she's having contractions but not . Reports she was spotting this AM and some burning when she urinates. Encounter Details Date Type Department Care Team (Late st Contact Info) Description 07/21/2024 12:15 PM CDT Office Visit [facility] at [address] [address] Sharron Rodriguez, SPORTS MARKETING SPECIALIST [address] [place] [address] [address] [place] [address] Abdominal pain (Primary Dx) Social History Tobacco Use Types Packs/Day Years Used Date Smoking Tobacco: Former Cigarettes Q uit: 2019 Passive Smoke Exposure: Never Smokeless Tobacco: Current AUDIT-C Answer Date Recorded Q1: How often do you have a drink containing alc ohol? Never 09/25/2023 Average Number of Drinks Not on file 024 Frequency of Binge Drinking Not on file 09/10 PHQ-2 Answer Date Recorded PHQ-2 Total Score (If total score is 3 or more points, staff should administer the PHQ-9) 0 09/25/2023 [place] Depression Scale Answer Date Recorded [place] Depression Scale Total 11 06/27/2023 The thought [...] on file Legal Sex Female 9:55 AM TRIM MOUNTER Gender Identity Female 11/03/2023 3:51 PM CDT Sexual Orientation Straight 11/03/2023 3: 51 PM CDT documented as of this encounter Last Filed Vital Signs Vital Sign Reading Time Taken Comments Blood Pressure 130/82 07/21/2024 12:07 PM CDT Pulse 100 07/21/2024 12:07 PM CDT Temperature 37.5 C (99.5 F) 07/21/2024 12:07 PM CDT Respiratory Rate 24 07/21/2024 12:07 PM CDT Oxygen Saturation 99% 07/21/2024 12:07 PM CDT Inhaled Oxygen Concentration - - Weight - - Height - - Body Mass Index - - documented in this encounter Plan of Treatment Not on file documented as of this encounter Visit Diagnoses Diagnosis Abdominal pain- Primary Abdominal pain, unspecified site documented in this encounter Care Teams Product Blending Supervisor Relationship Specialty Start Date End Date Dominick Maldonado MD PCP - General Family Medicine 04/06/20 documented as of this encounter
[2024-07-21 13:27] LABS: Alanine Aminotransferase 86 U/L (6-35); Alkaline Phosphatase 49 U/L (38-126); Anion Gap 9 mmol/L (4-12); Aspartate Amino Transferase 53 U/L (14-36); Bilirubin,Total 0.4 mg/dL (0.2-1.3); Blood Urea Nitrogen 10 mg/dL (7-17); Calcium 9.2 mg/dL (8.4-10.2); Carbon Dioxide 23 mmol/L (22-30); Chloride 108 mmol/L (98-107); Estimated CRCL calculation 139 ml/min; Estimated Glomerular Filt Rate > 60; Glucose 99 mg/dL (65-110); Lipase 58 U/L (23-300); Potassium 3.8 mmol/L (3.4-5.0); Sodium 140 mmol/L (137-145)
[2024-07-21 13:30] LABS: Add Urine Microscopic? YES; Appearance Urine Cloudy (Clear); Bacteria Urine None Seen /hpf; Bilirubin Urine Negative (Negative); Blood Urine 3+ (Negative); Color Urine Dark Yellow (Yellow); Glucose Urine UA Negative (Negative); Ketones Urine Trace mg/dL (Negative); Leukocyte Esterase Ur 2+ LEU/UL (Negative); Need Manual Microscopic Reviewed; Nitrate Urine Negative (Negative); Non Pathogenic Casts 0-2; Protein Urine 2+ mg/dL (Negative); RBC Urine >100 /hpf (0-2); Specific Grav Ur 1.026 (1.001-1.035); Squamous Epithelial Cell Urine None Seen /hpf (Few); WBC Urine >100 /hpf (0-3)
[2024-07-21] MEDS: levoFLOXacin 750 MG/D5W 150 ML 750 MG/150 ML BAG 100 MG IVPB (14:37)
== END 2024-07-21 16:33 | disposition home or self-care (01) ==
PROVIDERS: Emergency Provider Emergency Medicine; PCP Family Medicine
DX: N39.0 Urinary tract infection, site not specified (principal); Z90.49 Acquired absence of other specified parts of digestive tract; N83.201 Unspecified ovarian cyst, right side
CPT/HCPCS: 36415; 76830; 76856; 80053; 81001; 81025; 83690; 85025; 87086; 96365; 96366; 96375; 99284; J1171; J1956; J2405